=== PATIENT | female | born 1975 | race Caucasian/White ===

== ENCOUNTER → 2016-04-06 | Outpatient (CLI) | payer OTHER ==
[~2016-04-06] VITALS: Ht 139.7 cm; Wt 54.4 kg
[~2016-04-06] MED LIST: /ADVA50050; ADV100INH INH; ALEV220T26 PO; AMIT10TA2; AMLO5TAB2 PO; FLECTOR1.3; FLON0.05; GABA-283 PO; NS 1,000 ML IV SCH; OMEP40CA2 PO; PROA1AER INH; PROPOFOL 200 MG/20 ML VIAL As Ordered ONE; SOMA250T; TIZA4CAP3 PO; TRAM100T; VICO5TAB
--- NOTE | 2016-04-06 13:45 | ROOR ---
Patient Name: Estrella Key Procedure Date: 04/06/2016 1:28 PM Date of : 1975 Age: 40 Room: [facility] Gender: Female Note Status: Finalized Procedure: Upper GI endoscopy + Biopsies Indications: Dysphagia, Heartburn Providers: Pedro Sewell MD Referring MD: APPLE Todd Requesting Provider: Medicines: Monitored Anesthesia Care Complications: No immediate complications. Procedure: Pre-Anesthesia Assessment: - The heart rate, respiratory rate, oxygen saturations, blood pressure, adequacy of pulmonary ventilation, and response to care were monitored throughout the procedure. The Endoscope was introduced through the mouth, and advanced to the second part of duodenum. The upper GI endoscopy was accomplished without difficulty. The patient tolerated the procedure well. Findings: The Z-line was irregular and was found 40 cm from the incisors. Multiple biopsies were obtained with cold forceps for evaluation to rule out Lopez's Esophagus randomly at the gastroesophageal junction. A medium-sized hiatal hernia was present. No other significant abnormalities were identified in a careful examination of the stomach. The exam of the duodenum was otherwise normal. Impression: - Z-line irregular, 40 cm from the incisors. - Medium-sized hiatal hernia. - Multiple biopsies were obtained at the gastroesophageal junction. - The examination was otherwise normal. Recommendation: - Patient has a contact number available for emergencies. The signs and symptoms of potential delayed complications were discussed with the patient. Return to normal activities tomorrow. Written discharge instructions were provided to the patient. - High fiber diet. - Discharge patient to home. - Continue present medications. - Await pathology results. - Telephone GI clinic for pathology results in 1 week. - Return to referring physician. - The findings and recommendations were discussed with the patient's family. Pedro Sewell MD Pedro Sewell MD 04/06/2016 1:44:36 PM This report has been signed electronically. Number of Addenda: 0 Note Initiated On: 04/06/2016 1:28 PM Estimated Blood Loss: Estimated blood loss: none.
[2016-04-06 14:15] VITALS: BP 139/86
== END ==
LOC: M OPP 12:01
PROVIDERS: ATTEND Internal Medicine Gastroenterology
DX: R13.10 Dysphagia, unspecified (principal); R12 Heartburn; K22.8 Other specified diseases of esophagus; K44.9 Diaphragmatic hernia without obstruction or gangrene; R63.0 Anorexia; R63.4 Abnormal weight loss; J45.909 Unspecified asthma, uncomplicated; K21.9 Gastro-esophageal reflux disease without esophagitis; I10 Essential (primary) hypertension; Z79.899 Other long term (current) drug therapy

== ENCOUNTER 2016-09-15 23:39 | Emergency (ER) | payer OTHER ==
[~2016-09-15] VITALS: Ht 139.7 cm; Wt 51.4 kg
[2016-09-15 23:39] VITALS: BP 159/98
[~2016-09-15 23:39] MED LIST changes: -NS 1,000 ML IV SCH; -PROA1AER INH; +PROAAER10 INH; -PROPOFOL 200 MG/20 ML VIAL As Ordered ONE
[2016-09-15] MEDS ORDERED: ZANA4TAB (23:50)
[2016-09-15] MEDS ORDERED: OMEP20CA3 (23:50)
[2016-09-16] MEDS ORDERED: NORCO, ANEXSIA 5/325MG TABLET (HYDROcodone/ACETAMINOPHEN) PO ONE (01:25)
[2016-09-16] MEDS ORDERED: NAPROXEN 250 MG TAB PO ONE (01:25)
--- NOTE | 2016-09-16 05:00 | ED PDOC ---
Post-Departure Follow-Up This record was completely or completely on paper due to electronic EMR downtime. Please see the scanned paper chart attached. Penelope Orta MD Sep 16, 2016 05:00
== END 2016-09-16 05:06 | disposition home or self-care (01) ==
LOC: M ED 23:39
DX: M54.42 Lumbago with sciatica, left side (principal); Z79.899 Other long term (current) drug therapy

== ENCOUNTER → 2017-01-15 | Outpatient (REF) | payer OTHER ==
[~2017-01-15] MED LIST changes: +OMEP20CA3; +ZANA4TAB
[2017-01-15 19:54] LABS: BASO # 0.1 10^3/uL (0.0-0.2); BASO % 2.4 % (0.0-1.0); EOS # 0.3 10^3/uL (0.0-0.50); EOS % 5.9 % (0.0-3.0); IMMATURE GRANULOCYTE % 0.2 % (0-0); LYMPH % 35.8 % (24.0-44.0); MEAN CORPUSCULAR HEMOGLOBIN 19.7 pg (27.0-33.0); MEAN CORPUSCULAR HGB CONC 27.7 g/dl (32.0-36.5); MEAN CORPUSCULAR VOLUME 70.9 fl (80.0-96.0); MONO # 0.6 10^3/uL (0.0-0.8); MONO % 10.1 % (0.0-5.0); NEUTROPHILS # 2.5 10^3/uL (1.8-7.7); NEUTROPHILS % 45.6 % (36.0-66.0); PLATELET COUNT, AUTOMATED 577 10^3/uL (150-450); RED CELL DISTRIBUTION WIDTH 18.6 % (11.5-14.5); WHITE BLOOD COUNT 5.5 10^3/uL (4.0-10.0)
[2017-01-15 20:13] LABS: ALBUMIN 3.8 GM/DL (3.2-5.2); ALBUMIN/GLOBULIN RATIO 1.06 (1.00-1.93); ALKALINE PHOSPHATASE 73 U/L (45-117); ALT/SGPT 23 U/L (12-78); ANION GAP 6 MEQ/L (8-16); AST/SGOT 25 U/L (7-37); BILIRUBIN,TOTAL 0.4 MG/DL (0.2-1.0); BLOOD UREA NITROGEN 12 MG/DL (7-18); CALCIUM LEVEL 8.9 MG/DL (8.5-10.1); CARBON DIOXIDE LEVEL 29 MEQ/L (21-32); CHLORIDE LEVEL 104 MEQ/L (98-107); CREATININE FOR GFR 0.66 MG/DL (0.55-1.02); GLOMERULAR FILTRATION RATE > 60.0 (>58); GLUCOSE, FASTING 83 MG/DL (70-105); POTASSIUM SERUM 4.2 MEQ/L (3.5-5.1); SODIUM LEVEL 139 MEQ/L (136-145); TOTAL PROTEIN 7.4 GM/DL (6.4-8.2)
[2017-01-15 20:30] LABS: ERYTHROCYTE SEDIMENTATION RATE 39 mm/hr (0-20)
== END ==
LOC: M SFHCADAM 11:47
PROVIDERS: ATTEND Family Medicine
DX: M25.50 Pain in unspecified joint (principal); I10 Essential (primary) hypertension

== ENCOUNTER → 2017-01-15 | Outpatient (CLI) | payer OTHER ==
--- NOTE | 2017-01-15 12:55 | REP ---
REASON FOR EXAM: Arthritis. COMPARISON EXAM: None. FINDINGS: The joint spaces are symmetric and relatively well maintained. There is no evidence of acute fracture or destructive osseous lesion. IMPRESSION: Negative hand. Unreviewed
== END ==
LOC: M ADAMS 11:47
PROVIDERS: ATTEND Family Medicine
DX: M25.50 Pain in unspecified joint (principal)

== ENCOUNTER → 2017-01-28 | Outpatient (CLI) | payer OTHER ==
[~2017-01-28] MED LIST changes: +EXCETAB80 PO; +FERR325T3 PO; -OMEP20CA3; +OMEP20CA3 PO; -ZANA4TAB; +ZANA4TAB PO
[2017-01-28 15:16] LABS: BASO # 0.1 10^3/uL (0.0-0.2); BASO % 1.5 % (0.0-1.0); EOS # 0.4 10^3/uL (0.0-0.50); EOS % 4.8 % (0.0-3.0); IMMATURE GRANULOCYTE % 0.3 % (0-0); LYMPH # 2.2 10^3/uL (1.5-4.5); LYMPH % 28.1 % (24.0-44.0); MEAN CORPUSCULAR HEMOGLOBIN 19.5 pg (27.0-33.0); MEAN CORPUSCULAR HGB CONC 28.3 g/dl (32.0-36.5); MONO # 0.5 10^3/uL (0.0-0.8); MONO % 6.6 % (0.0-5.0); NEUTROPHILS # 4.6 10^3/uL (1.8-7.7); NEUTROPHILS % 58.7 % (36.0-66.0); PLATELET COUNT, AUTOMATED 409 10^3/uL (150-450); RED CELL DISTRIBUTION WIDTH 18.5 % (11.5-14.5); WHITE BLOOD COUNT 7.9 10^3/uL (4.0-10.0)
[2017-01-28 15:45] LABS: PERCENT SATURATION 2.5 % (13.2-45.0)
== END ==
LOC: M LAB 14:36
PROVIDERS: ATTEND Family Medicine
DX: D64.9 Anemia, unspecified (principal)
CPT/HCPCS: 36415; 84466; 85025; G0463

== ENCOUNTER 2017-02-12 20:14 | Observation (INO) | payer OTHER ==
[~2017-02-12] VITALS: Ht 165.1 cm; Wt 50.9 kg
[~2017-02-12 20:14] MED LIST changes: -EXCETAB80 PO; -FERR325T3 PO
[2017-02-12] MEDS ORDERED: EXCETAB80 PO (20:23)
[2017-02-12] MEDS ORDERED: AMLO5TAB2 PO (20:23)
[2017-02-12 20:56] LABS: BASO # 0.1 10^3/uL (0.0-0.2); BASO % 1.3 % (0.0-1.0); EOS # 0.2 10^3/uL (0.0-0.50); EOS % 3.6 % (0.0-3.0); IMMATURE GRANULOCYTE % 0.2 % (0-0); LYMPH # 2.8 10^3/uL (1.5-4.5); LYMPH % 45.1 % (24.0-44.0); MEAN CORPUSCULAR HEMOGLOBIN 19.6 pg (27.0-33.0); MEAN CORPUSCULAR HGB CONC 28.6 g/dl (32.0-36.5); MEAN CORPUSCULAR VOLUME 68.6 fl (80.0-96.0); MONO # 0.3 10^3/uL (0.0-0.8); MONO % 5.4 % (0.0-5.0); NEUTROPHILS # 2.7 10^3/uL (1.8-7.7); NEUTROPHILS % 44.4 % (36.0-66.0); PLATELET COUNT, AUTOMATED 607 10^3/uL (150-450); RED CELL DISTRIBUTION WIDTH 18.7 % (11.5-14.5); WHITE BLOOD COUNT 6.1 10^3/uL (4.0-10.0)
[2017-02-12 21:16] LABS: ANION GAP 7 MEQ/L (8-16); BLOOD UREA NITROGEN 11 MG/DL (7-18); CARBON DIOXIDE LEVEL 27 MEQ/L (21-32); CHLORIDE LEVEL 106 MEQ/L (98-107); CREATININE FOR GFR 0.68 MG/DL (0.55-1.02); GLOMERULAR FILTRATION RATE > 60.0 (>58); GLUCOSE, FASTING 84 MG/DL (70-105); POTASSIUM SERUM 3.6 MEQ/L (3.5-5.1); SODIUM LEVEL 140 MEQ/L (136-145)
[2017-02-12 21:30] LABS: INR 0.91
[2017-02-12] MEDS ORDERED: tiZANidine 4 MG TAB PO PRN (22:15)
[2017-02-12] MEDS ORDERED: EXCEDRIN MIGRAINE TABLET PO PRN (22:15)
[2017-02-13 00:53] VITALS: BP 133/83
[2017-02-13 04:00] VITALS: BP_SYST 118; BP_SYST 134; BP_DIAS 75; BP_DIAS 87
[2017-02-13 06:00] LABS: MEAN CORPUSCULAR HEMOGLOBIN 21.4 pg (27.0-33.0); MEAN CORPUSCULAR HGB CONC 30.1 g/dl (32.0-36.5); MEAN CORPUSCULAR VOLUME 71.3 fl (80.0-96.0); RED CELL DISTRIBUTION WIDTH 19.9 % (11.5-14.5); WHITE BLOOD COUNT 6.3 10^3/uL (4.0-10.0)
[2017-02-13 06:12] LABS: PLATELET COUNT, AUTOMATED 487 10^3/uL (150-450)
[2017-02-13 08:00] VITALS: BP 127/73
--- NOTE | 2017-02-13 08:53 | HPE ---
DATE OF ADMISSION: 02/12/2017 PRIMARY CARE PROVIDER AND ATTENDING PHYSICIAN: Dr. Willett CHIEF COMPLAINT: Worsening anemia and general weakness. HISTORY OF PRESENT ILLNESS: The patient is a 41-year-old white female who presented to the hospital for evaluation of worsening anemia and weakness. History is provided by herself. She states one month ago she saw her primary care provider and underwent routine blood tests and found to have severe iron deficiency anemia. She states that she had some dark stool, but her primary care provider checked her stool, which was negative for bleeding. Since then, she started to take oral iron pills. She stated that she has heavy period and she is going to see the OPTICAL INSTRUMENT ASSEMBLER physician. Today, she went back to see her primary care provider and repeat blood test found her hemoglobin and hematocrit down to 7.0/24. She was requested to come to the hospital for blood transfusion. She stated that she felt weak, particularly if she moved around. Otherwise, she did not have any other symptoms. REVIEW OF SYSTEMS: Denies fever. No chills. No headache. No blurred vision. No syncope episodes. No chest pain. No coughing. No abdominal pain. No diarrhea. No hematemesis. No tarry stools. No dysuria. No tingling, numbness, weakness in the arms, lower extremities. All other systems reviewed but negative. PAST MEDICAL HISTORY: 1. Iron deficiency anemia. 2. History of asthma. 3. Hypertension. PAST SURGICAL HISTORY: 1. section. 2. Appendectomy. 3. Tonsillectomy. ALLERGIES: No known drug allergies. SOCIAL HISTORY: Few cigarettes a day. Denies alcohol abuse. Denies illicit drug abuse. 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 She is FULL CODE: FAMILY HISTORY: Father has a history of high blood pressure. MEDICATIONS: Reviewed. PHYSICAL EXAMINATION: VITAL SIGNS: Temperature 98.5, heart rate 75, respiratory rate 18, blood pressure 159/98, oxygen saturation is 100% on room air. GENERAL: She is awake, alert, oriented times three. She is in no acute distress. HEENT: Atraumatic. Pupils are equal, round and reactive to light. No jaundice. Bilateral conjunctivae look pale. Extraocular muscles are intact. Ears, nose, throat normal. Mucosa moist, not dry. NECK: No jugular venous distention (JVD). LUNGS: Clear. No wheezing. No crackles. HEART: S1, S2. Regular. No murmur. ABDOMEN: Soft. Bowel sounds positive. Nontender. LOWER EXTREMITIES: No edema in bilateral lower extremities. NEUROLOGIC: Nonfocal. SKIN: No rash. PSYCHIATRIC: No acute psychosis. DIAGNOSTIC AND LABORATORIES: Include the following: CBC and differential showed a WBC of 6.1, hemoglobin and hematocrit 7.0/24.5, platelets 607. Sodium 140, potassium 3.6, chloride 106, bicarbonate 27, BUN 11, creatinine 0.6, glucose 80. IMPRESSION: 1. Symptomatic severe iron deficiency anemia. 2. Hypertension. 3. Asthma. PLAN: She will be admitted for observation. We will type and cross and transfuse with 2 units of packed red blood cell. We will recheck CBC in the morning. 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
[2017-02-13] MEDS ORDERED: amLODIPine 5 MG TAB PO SCH (09:00)
[2017-02-13] MEDS ORDERED: OMEPRAZOLE 20 MG CAP PO SCH (09:00)
[2017-02-13 09:04] VITALS: BP 127/73
[2017-02-13] MEDS ORDERED: FERR325T3 PO (12:38)
--- NOTE | 2017-02-14 18:28 | DSES ---
DATE OF ADMISSION: 02/12/2017 DATE OF DISCHARGE: 02/13/2017 DIAGNOSES: 1. Iron-deficiency anemia. 2. History of asthma. 3. Hypertension. 4. History of gastric ulcer. 5. Heavy menstrual bleeding. BRIEF HISTORY AND PHYSICAL: This is a 41-year-old woman who add been having fatigue at home, had known history of gastric ulcer but also had heavy periods, had labs that showed hemoglobin of 6.9 as an outpatient and microcytic indices. She was advised to come to the hospital and be admitted for transfusion. Initial examination showed blood pressure 159/98, pulse 75, respirations 18, temperature 98.5. Lungs were clear. Heart had regular rhythm without any murmur, click or gallop. Abdomen was soft and nontender without any masses or organomegaly. Bowel sounds were active. Hospital lab data showed hemoglobin 7.0, platelet 607,000, WBC 6100, potassium 3.6, BUN 11, creatinine 0.6. Hemoglobin after transfusion was 9.2. Serum iron was low at 14, TIBC was 563. Transferrin saturation was low. PT/INR were normal. COURSE IN THE FACILITY: The patient was brought into the hospital for transfusion. She was given two units of packed red blood cells. This brought her hemoglobin up to 9.2. She felt a lot better. She was seen prior to discharge at which time her temperature is 98.7, blood pressure 127/73, pulse 76, respirations 18, O2 saturation 97% on room air. She is not in any distress. She had rare wheeze in her chest. Heart had a regular rhythm without any murmur, click or gallop. Abdomen was soft and nontender. She was advised to continue her: - amlodipine 5 mg daily - omeprazole 20 mg twice a day - Excedrin migraine as needed - Zanaflex 4 mg daily as needed Also her asthma inhalers as directed. She indicated that she was already taking iron at home but was started only recently and was instructed by her office provider to take three tablets every other day. I indicated that one tablet daily is how I wanted her to take it. In two days she should call the office and arrange a followup appointment, I recommend towards the end of this week before [place] for followup appointment also to find out about her consultations with gynecology (HUSKER OPERATOR) and gastroenterology (GI) and also perhaps have another complete blood count (CBC) done. MIMI
== END 2017-02-13 13:25 | disposition home or self-care (01) ==
LOC: M ED 20:14 → M ED INP 22:07 → M PED 23:30
PROVIDERS: ADMIT Hospitalist; ATTEND Family Medicine
DX: D50.9 Iron deficiency anemia, unspecified (principal); J45.909 Unspecified asthma, uncomplicated; I10 Essential (primary) hypertension; K25.9 Gastric ulcer, unspecified as acute or chronic, without hemorrhage or perforation; N92.0 Excessive and frequent menstruation with regular cycle; R53.83 Other fatigue; R53.1 Weakness; K21.9 Gastro-esophageal reflux disease without esophagitis; M54.9 Dorsalgia, unspecified; Z79.899 Other long term (current) drug therapy; Z79.51 Long term (current) use of inhaled steroids; F17.210 Nicotine dependence, cigarettes, uncomplicated
CPT/HCPCS: 36415; 36430; 80048; 85025; 85027; 85610; 85730; 86850; 86900; 86901; 86920; 99285; P9016

== ENCOUNTER → 2017-02-12 | Outpatient (CLI) | payer OTHER | LOC: M LAB 14:36 | PROVIDERS: ATTEND Family Medicine | DX: D50.9 Iron deficiency anemia, unspecified (principal) ==

== ENCOUNTER → 2017-04-08 | Outpatient (REF) | payer OTHER ==
[2017-04-08 12:58] LABS: HEMATOCRIT 33.1 % (36.0-47.0); HEMOGLOBIN 10.1 g/dl (12.0-16.0); MEAN CORPUSCULAR HEMOGLOBIN 23.5 pg (27.0-33.0); MEAN CORPUSCULAR HGB CONC 30.5 g/dl (32.0-36.5); PLATELET COUNT, AUTOMATED 432 10^3/uL (150-450); RED CELL DISTRIBUTION WIDTH 23.1 % (11.5-14.5); WHITE BLOOD COUNT 6.5 10^3/uL (4.0-10.0)
== END ==
LOC: M SFHCADAM 09:59
DX: D50.9 Iron deficiency anemia, unspecified (principal)

== ENCOUNTER 2017-04-21 11:18 | Day surgery (SDC) | payer OTHER ==
[~2017-04-21 11:18] MED LIST changes: -/ADVA50050; -ADV100INH INH; -ALEV220T26 PO; -AMIT10TA2; -AMLO5TAB2 PO; -FLECTOR1.3; -FLON0.05; -GABA-283 PO; -OMEP20CA3 PO; -OMEP40CA2 PO; -PROAAER10 INH; +PROPOFOL 200 MG/20 ML VIAL As Ordered; -SOMA250T; -TIZA4CAP3 PO; -TRAM100T; -VICO5TAB; -ZANA4TAB PO
[2017-04-21] MEDS: NS 1,000 ML IV (12:00)
[2017-04-21] MEDS ORDERED: PROPOFOL 200 MG/20 ML VIAL As Ordered ×2 (12:39→12:42)
[2017-04-21] MEDS ORDERED: LIDOCAINE 2% INJ 100 MG/5 ML SDV (FOR ANES.) As Ordered ×2 (12:39)
== END 2017-04-21 13:40 | disposition home or self-care (01) ==
LOC: M OPP 11:18
DX: D50.9 Iron deficiency anemia, unspecified (principal); K64.0 First degree hemorrhoids; K57.30 Diverticulosis of large intestine without perforation or abscess without bleeding; K22.8 Other specified diseases of esophagus; K44.9 Diaphragmatic hernia without obstruction or gangrene; I10 Essential (primary) hypertension; E78.5 Hyperlipidemia, unspecified; R13.10 Dysphagia, unspecified; K59.00 Constipation, unspecified; Z87.19 Personal history of other diseases of the digestive system; M54.9 Dorsalgia, unspecified; G43.909 Migraine, unspecified, not intractable, without status migrainosus; J45.909 Unspecified asthma, uncomplicated; Z92.21 Personal history of antineoplastic chemotherapy; Z92.3 Personal history of irradiation; Z79.899 Other long term (current) drug therapy
CPT/HCPCS: 45378

== ENCOUNTER → 2017-05-03 | Outpatient (REF) | payer OTHER | LOC: M LAB REF 13:50 | DX: N93.9 Abnormal uterine and vaginal bleeding, unspecified (principal) ==

== ENCOUNTER → 2017-05-31 | Outpatient (CLI) | payer OTHER | LOC: M RAD 14:32 | DX: N93.9 Abnormal uterine and vaginal bleeding, unspecified (principal) | CPT/HCPCS: 76856 ==

== ENCOUNTER → 2017-06-03 | Outpatient (REF) | payer OTHER ==
[2017-06-08 14:13] LABS: HPV HYBRID CAPTURE II Negative (Negative)
== END ==
LOC: M LAB REF 13:36
DX: Z12.4 Encounter for screening for malignant neoplasm of cervix (principal)

== ENCOUNTER → 2017-07-01 | Outpatient (REF) | payer OTHER ==
[2017-07-01 14:25] LABS: APPEARANCE, URINE CLEAR (CLEAR); BACTERIA, URINE AUTO NEGATIVE (NEGATIVE); BILIRUBIN, URINE AUTO NEGATIVE (NEGATIVE); BLOOD, URINE BLOOD NEGATIVE (NEGATIVE); COLOR, URINE STRAW (YELLOW); GLUCOSE, URINE (UA) AUTO NEGATIVE (NEGATIVE); KETONE, URINE AUTO NEGATIVE (NEGATIVE); LEUKOCYTE ESTERASE, URINE AUTO NEGATIVE (NEGATIVE); NITRITE, URINE AUTO NEGATIVE (NEGATIVE); PROTEIN, URINE AUTO NEGATIVE (NEGATIVE); RBC, URINE AUTO 0 /HPF (0-3); SPECIFIC GRAVITY URINE AUTO 1.009 (1.002-1.035); SQUAMOUS EPITHELIAL CELL UR AU 0 /HPF (0-6); UROBILINOGEN, URINE AUTO 0.2 mg/dL (0.0-2.0); WBC, URINE AUTO 0 /HPF (0-3)
== END ==
LOC: M LAB REF 13:26
DX: R30.0 Dysuria (principal)

== ENCOUNTER → 2017-11-24 | Outpatient (CLI) | payer OTHER | LOC: M RAD 10:50 | DX: R59.1 Generalized enlarged lymph nodes (principal) | CPT/HCPCS: 76536 ==

== ENCOUNTER 2018-07-31 22:44 | Emergency (ER) | payer OTHER ==
[~2018-07-31] VITALS: Ht 139.7 cm; Wt 54.5 kg
[~2018-07-31 22:44] MED LIST changes: +ADV100INH INH; +ADVA1AER2; +ALEV220T26 PO; +AMIT10TA2; +AMLO5TAB6 PO; +COLA100C5 PO; +EXCETAB80 PO; +FERR325T3 PO; +FLECTOR1.3; +FLON0.05; +GABA-845 PO; +IBUP80TA PO; +OMEP20CA3 PO; +OMEP40CA2 PO; +OXYC1TAB23 PO; +PROAAER10 INH; -PROPOFOL 200 MG/20 ML VIAL As Ordered; +SOMA250T; +TIZA4CAP PO; +TRAM100T; +VICO5TAB; +ZANA4TAB PO
[2018-07-31] MEDS ORDERED: LORazepam 2 MG/ML VIAL (J2060) IV STA (23:13)
[2018-07-31] MEDS ORDERED: NS 1,000 ML IV ONE (23:15)
[2018-07-31 23:28] LABS: HEMATOCRIT 31.9 % (36.0-47.0); HEMOGLOBIN 9.7 g/dl (12.0-15.5); MEAN CORPUSCULAR HEMOGLOBIN 23.9 pg (27.0-33.0); MEAN CORPUSCULAR HGB CONC 30.4 g/dl (32.0-36.5); MEAN CORPUSCULAR VOLUME 78.6 fl (80.0-96.0); PLATELET COUNT, AUTOMATED 415 10^3/uL (150-450); RED BLOOD COUNT 4.06 10^6/uL (4.00-5.40); WHITE BLOOD COUNT 10.2 10^3/uL (4.0-10.0)
[2018-07-31 23:34] LABS: VENOUS BASE EXCESS -3.9 (-2.0-2.0); VENOUS HCO3 18.7 MEQ/L (23.0-27.0); VENOUS O2 SATURATION 84.9 % (60.0-80.0); VENOUS PARTIAL PRESSURE CO2 26.4 mmHg (38.0-50.0); VENOUS PARTIAL PRESSURE O2 49.6 mmHg (30.0-50.0); VENOUS PH 7.467 UNITS (7.330-7.430); VENOUS TOTAL CO2 19.5 MEQ/L (24.0-28.0)
[2018-07-31 23:48] LABS: ANISOCYTOSIS 1+; ATYPICAL LYMPH 2 % (0-5); EOSINOPHILS 3 % (0-5); LYMPHOCYTES 40 % (16-52); MICROCYTOSIS 1+; MONOCYTES 5 % (0-8); NEUTROPHILS 50 % (35-75); PLATELET ESTIMATE INCREASED (NORMAL)
[2018-07-31 23:50] LABS: POIKILOCYTOSIS 1+
[2018-07-31 23:51] LABS: ACETAMINOPHEN LEVEL < 2.0 UG/ML (10.0-30.0); ALBUMIN 3.8 GM/DL (3.2-5.2); ALT/SGPT 19 U/L (12-78); BILIRUBIN,DIRECT < 0.1 MG/DL (0.0-0.2); BILIRUBIN,TOTAL 0.2 MG/DL (0.2-1.0); BLOOD UREA NITROGEN 8 MG/DL (7-18); CALCIUM LEVEL 8.3 MG/DL (8.5-10.1); CARBON DIOXIDE LEVEL 22 MEQ/L (21-32); CHLORIDE LEVEL 109 MEQ/L (98-107); CPK CREATINE PHOSPHOKINASE 211 U/L (26-192); CREATININE FOR GFR 0.74 MG/DL (0.55-1.30); ETHYL ALCOHOL (ETHANOL) 0.139 % (0.000-0.010); GLOMERULAR FILTRATION RATE > 60.0 (>58); GLUCOSE, FASTING 90 MG/DL (70-100); MB/CK RELATIVE INDEX 1.09 (< OR =4); POTASSIUM SERUM 3.8 MEQ/L (3.5-5.1); SALICYLATE LEVEL < 1.7 MG/DL (5.0-30.0); SODIUM LEVEL 143 MEQ/L (136-145); TOTAL PROTEIN 7.4 GM/DL (6.4-8.2); TROPONIN I < 0.02 NG/ML (< 0.10)
[2018-08-01] MEDS ORDERED: BENZTROPINE MESYLATE 2MG/2ML VIAL IM ONE (00:15)
[2018-08-01 00:56] LABS: AMPHETAMINES LEVEL URINE NEGATIVE (NEGATIVE); BARBITURATES URINE NEGATIVE (NEGATIVE); BENZODIAZEPINES URINE NEGATIVE (NEGATIVE); CANNABINOIDS URINE NEGATIVE (NEGATIVE); COCAINE METABOLITE URINE NEGATIVE (NEGATIVE); METHADONE URINE NEGATIVE (NEGATIVE); OPIATES URINE NEGATIVE (NEGATIVE); PHENCYCLIDINE URINE NEGATIVE (NEGATIVE)
--- NOTE | 2018-08-01 01:25 | REPVR ---
EXAM: CT Head Without Contrast EXAM DATE/TIME: 08/01/2018 12:52 AM CLINICAL HISTORY: 43 years old, female; Signs and symptoms; Altered mental status/memory loss; Confusion or disorientation; Additional info: AMS TECHNIQUE: Imaging protocol: Axial computed tomography images of the head without contrast. Radiation optimization: All CT scans at this facility use at least one of these dose optimization techniques: automated exposure control; mA and/or kV adjustment per patient size (includes targeted exams where dose is matched to clinical indication); or iterative reconstruction. COMPARISON: Thyroid, ST head+neck US 11/24/2017 11:03 AM FINDINGS: Brain: No CT evidence of acute intracranial hemorrhage or acute territorial infarction. No significant mass effect or midline shift. Basal cisterns patent. Ventricles: Normal in size and configuration. Bones/joints: No acute osseous abnormality. Sinuses: Grossly unremarkable. Mastoid air cells: Partial opacification of the mastoid air cells. Soft tissues: Grossly unremarkable. IMPRESSION: 1. No CT evidence of acute intracranial pathology. 2. Additional findings, as above. Electronically signed by: Santo Carrington On 08/01/2018 01:24:21 AM
[2018-08-01 02:34] VITALS: O2SAT 97
[2018-08-01 03:57] VITALS: BP 122/71
[2018-08-01] MEDS ORDERED: EXCEDTAB PO (12:40)
[2018-08-01] MEDS ORDERED: TIZA4TAB4 PO (12:40)
[2018-08-01] MEDS ORDERED: ADVI200T17 PO (12:42)
[2018-08-01] MEDS ORDERED: KEPP1TAB PO (14:40)
--- NOTE | 2018-08-01 15:10 | ECGEPIP ---
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
== END 2018-08-01 04:06 | disposition home or self-care (01) ==
LOC: M ED 22:44
DX: F10.129 Alcohol abuse with intoxication, unspecified (principal); Z79.51 Long term (current) use of inhaled steroids; Z79.899 Other long term (current) drug therapy

== ENCOUNTER 2018-08-01 10:25 | Emergency (ER) | payer OTHER ==
[~2018-08-01] VITALS: Ht 139.7 cm; Wt 55.4 kg
[2018-08-01] MEDS ORDERED: LORazepam 2 MG/ML VIAL (J2060) IV STA (11:25)
[2018-08-01] MEDS ORDERED: NS 1,000 ML IV ONE (11:30)
--- NOTE | 2018-08-01 11:52 | REP ---
CT Head without contrast HISTORY: Altered mental status COMPARISON: 08/01/2018 There is no intraparenchymal hemorrhage, acute infarct, mass or midline shift. The ventricular system is normal in appearance. A cavum septi pellucidi is present. There is no extra cerebral collection. There is no fracture. Mucosal thickening is present in the mastoid air cells. The visualized sinuses are clear. IMPRESSION: There is no intracranial lesion. Electronically Signed by Israel Putnam MD 08/01/2018 11:45 A
[2018-08-01 11:59] LABS: BASO # 0.1 10^3/uL (0.0-0.2); EOS # 0.1 10^3/uL (0.0-0.50); EOS % 1.8 % (0.0-3.0); HEMATOCRIT 31.6 % (36.0-47.0); HEMOGLOBIN 9.7 g/dl (12.0-15.5); LYMPH # 1.7 10^3/uL (1.5-4.5); LYMPH % 25.7 % (24.0-44.0); MEAN CORPUSCULAR HEMOGLOBIN 24.5 pg (27.0-33.0); MEAN CORPUSCULAR HGB CONC 30.7 g/dl (32.0-36.5); MEAN CORPUSCULAR VOLUME 79.8 fl (80.0-96.0); MONO # 0.5 10^3/uL (0.0-0.8); MONO % 7.2 % (0.0-5.0); NEUTROPHILS # 4.3 10^3/uL (1.8-7.7); NEUTROPHILS % 63.9 % (36.0-66.0); PLATELET COUNT, AUTOMATED 345 10^3/uL (150-450); RED BLOOD COUNT 3.96 10^6/uL (4.00-5.40); WHITE BLOOD COUNT 6.8 10^3/uL (4.0-10.0)
--- NOTE | 2018-08-01 12:24 | REP ---
CHEST: Single view. There is no evidence of acute infiltrate. No pleural effusion is seen. The heart is normal in size. The mediastinal silhouette is unremarkable. The visualized osseous structures are intact. IMPRESSION: No acute pulmonary disease. Electronically Signed by Grayson Harris MD 08/02/2018 11:56 A
[2018-08-01 12:30] LABS: AMPHETAMINES LEVEL URINE NEGATIVE (NEGATIVE); BARBITURATES URINE NEGATIVE (NEGATIVE); BENZODIAZEPINES URINE NEGATIVE (NEGATIVE); CANNABINOIDS URINE NEGATIVE (NEGATIVE); COCAINE METABOLITE URINE NEGATIVE (NEGATIVE); METHADONE URINE NEGATIVE (NEGATIVE); OPIATES URINE NEGATIVE (NEGATIVE); PHENCYCLIDINE URINE NEGATIVE (NEGATIVE)
[2018-08-01 12:35] LABS: ACETAMINOPHEN LEVEL < 2.0 UG/ML (10.0-30.0); ALBUMIN 3.9 GM/DL (3.2-5.2); ALT/SGPT 18 U/L (12-78); BILIRUBIN,DIRECT 0.1 MG/DL (0.0-0.2); BILIRUBIN,TOTAL 0.6 MG/DL (0.2-1.0); BLOOD UREA NITROGEN 6 MG/DL (7-18); CARBON DIOXIDE LEVEL 26 MEQ/L (21-32); CHLORIDE LEVEL 109 MEQ/L (98-107); CPK CREATINE PHOSPHOKINASE 284 U/L (26-192); CREATININE FOR GFR 0.61 MG/DL (0.55-1.30); ETHYL ALCOHOL (ETHANOL) < 0.003 % (0.000-0.010); GLOMERULAR FILTRATION RATE > 60.0 (>58); GLUCOSE, FASTING 85 MG/DL (70-100); MB/CK RELATIVE INDEX 0.63 (< OR =4); POTASSIUM SERUM 3.8 MEQ/L (3.5-5.1); SALICYLATE LEVEL < 1.7 MG/DL (5.0-30.0); SODIUM LEVEL 141 MEQ/L (136-145); TOTAL PROTEIN 7.2 GM/DL (6.4-8.2); TROPONIN I < 0.02 NG/ML (< 0.10)
[2018-08-01] MEDS ORDERED: TIZA4TAB4 PO (12:40)
[2018-08-01] MEDS ORDERED: EXCEDTAB PO (12:40)
[2018-08-01] MEDS ORDERED: ADVI200T17 PO (12:42)
[2018-08-01] MEDS ORDERED: levETIRAcetam INJection 1,000 MG in D5W 100 ML IV ONE (13:15)
[2018-08-01] MEDS ORDERED: levETIRAcetam INJection 500 MG in D5W 100 ML IV SCH (13:30)
[2018-08-01] MEDS: levETIRAcetam INJection 500 MG in D5W MINI-BAG PLUS 100 ML IV SCH ×2 (13:50→14:32)
[2018-08-01] MEDS ORDERED: KEPP1TAB PO (14:40)
[2018-08-01 14:45] VITALS: BP 135/92
--- NOTE | 2018-08-01 15:18 | ECGEPIP ---
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
== END 2018-08-01 14:59 | disposition home or self-care (01) ==
LOC: M ED 10:25
DX: G25.3 Myoclonus (principal); F10.129 Alcohol abuse with intoxication, unspecified; I10 Essential (primary) hypertension; F17.210 Nicotine dependence, cigarettes, uncomplicated; Z79.51 Long term (current) use of inhaled steroids; Z79.899 Other long term (current) drug therapy
CPT/HCPCS: 36415; 70450; 71045; 80048; 80076; 80307; 81001; 82140; 82550; 82553; 82803; 83605; 84443; 84484; 85025; 93005; 93041; 96361; 96365; 96372; 96374; 96375; 99285; G0480; J1953; J2060

== ENCOUNTER → 2018-08-23 | Outpatient (CLI) | payer OTHER ==
[~2018-08-23] MED LIST changes: +ADVI200T17 PO; +EXCEDTAB PO; +KEPP1TAB PO; +TIZA4TAB4 PO
[2018-08-23 13:23] LABS: RHEUMATOID FACTOR QUANT < 10.0 IU/ML (<15.0)
[2018-08-23 13:36] LABS: FOLATE 18.2 NG/ML; VITAMIN B12 LEVEL 337 PG/ML
[2018-08-30 00:06] LABS: ANTI DOUBLE STRAND-DNA AB <1 IU/mL (0-9); ANTINUCLEAR ANTIBODIES DIRECT Positive (Negative); PORPHOBILINOGEN RANDOM URINE 0.2 mg/L (0.0-2.0); SJOGREN'S ANTI SS-A <0.2 AI (0.0-0.9); SJOGREN'S ANTI SS-B <0.2 AI (0.0-0.9); SMITH ANTIBODIES <0.2 AI (0.0-0.9); VITAMIN B1 LEVEL WHOLE BLOOD 101.2 nmol/L (66.5-200.0); VITAMIN E(ALPHA TOCOPHEROL) 12.9 mg/L (7.0-25.1); VITAMIN E(GAMMA TOCOPHEROL) 2.2 mg/L (0.5-5.5)
== END ==
LOC: M ADAMS 08:36
PROVIDERS: ATTEND Psychiatry & Neurology Neurology
DX: R41.82 Altered mental status, unspecified (principal)

== ENCOUNTER → 2019-08-03 | Outpatient (CLI) | payer OTHER ==
[~2019-08-03] MED LIST changes: +OMEP1CAP73 PO; -OMEP20CA3 PO; -OMEP40CA2 PO; +OMEP40CA97 PO
--- NOTE | 2019-08-04 01:53 | REP ---
Clinical: Right hand pain. Technique: AP, lateral, bilateral oblique views of the right hand. Findings: Generalized age-related changes are appreciated. Very minimal joint space narrowing at the interphalangeal joints noted. No further significant osteoarthritic degenerative changes identified. No acute fracture dislocation. No subcutaneous emphysema or foreign body. Impression: Generalized age-related changes along with minimal joint space narrowing at the interphalangeal joints. Electronically Signed by Santy Mays MD 08/04/2019 01:44 A
== END ==
LOC: M ADAMS 09:55
PROVIDERS: ATTEND Physician Assistant
DX: M79.641 Pain in right hand (principal)

== ENCOUNTER 2019-09-28 22:50 | Emergency (ER) | payer OTHER ==
[~2019-09-28 22:50] MED LIST changes: +ACETAMINOPHEN 325 MG TAB As Ordered ONE; +ACETAMINOPHEN 325 MG TAB ONE; +AMLO1TAB24 PO; -AMLO5TAB6 PO
[2019-11-05 14:19] LABS: BASO % 0.3 % (0.0-1.0); EOS % 0.1 % (0.0-3.0); HEMATOCRIT 32.3 % (36.0-47.0); HEMOGLOBIN 9.7 g/dl (12.0-15.5); LYMPH # 0.8 10^3/uL (1.5-5.0); LYMPH % 9.1 % (24.0-44.0); MEAN CORPUSCULAR HEMOGLOBIN 22.2 pg (27.0-33.0); MEAN CORPUSCULAR VOLUME 73.9 fl (80.0-96.0); MONO # 0.5 10^3/uL (0.0-0.8); MONO % 5.2 % (0.0-5.0); NEUTROPHILS # 7.7 10^3/uL (1.5-8.5); NEUTROPHILS % 84.9 % (36.0-66.0); PLATELET COUNT, AUTOMATED 280 10^3/uL (150-450); RED BLOOD COUNT 4.37 10^6/uL (4.00-5.40); WHITE BLOOD COUNT 9.1 10^3/uL (4.0-10.0)
[2019-12-08 12:00] LABS: ALBUMIN 3.9 GM/DL (3.2-5.2); ALT/SGPT 17 IU/L (0-32); BILIRUBIN,DIRECT 0.2 MG/DL (0.0-0.2); BILIRUBIN,TOTAL 0.4 MG/DL (0.2-1.0); BLOOD UREA NITROGEN 8 MG/DL (7-18); CALCIUM LEVEL 8.6 MG/DL (8.5-10.1); CARBON DIOXIDE LEVEL 26 mmol/L (20-29); CHLORIDE LEVEL 103 MEQ/L (98-107); CREATININE FOR GFR 0.79 MG/DL (0.55-1.30); GLOMERULAR FILTRATION RATE > 60.0 (>58); GLUCOSE, FASTING 90 MG/DL (70-100); POTASSIUM SERUM 3.1 MEQ/L (3.5-5.1); SODIUM LEVEL 135 MEQ/L (136-145); TOTAL PROTEIN 7.7 GM/DL (6.4-8.2)
== END 2019-09-29 00:20 | disposition home or self-care (01) ==
LOC: M ED 22:50
DX: B34.9 Viral infection, unspecified (principal); R06.02 Shortness of breath; M79.10 Myalgia, unspecified site

== ENCOUNTER → 2019-12-15 | Outpatient (REF) | payer OTHER ==
[~2019-12-15] MED LIST changes: -ACETAMINOPHEN 325 MG TAB As Ordered ONE; -ACETAMINOPHEN 325 MG TAB ONE
[2019-12-15 13:09] LABS: BASO # 0.1 10^3/uL (0.0-0.2); BASO % 1.4 % (0.0-1.0); EOS # 0.5 10^3/uL (0.0-0.5); EOS % 6.6 % (0.0-3.0); HEMATOCRIT 32.1 % (36.0-47.0); LYMPH # 2.1 10^3/uL (1.5-5.0); LYMPH % 30.7 % (24.0-44.0); MEAN CORPUSCULAR HEMOGLOBIN 21.4 pg (27.0-33.0); MEAN CORPUSCULAR VOLUME 76.2 fl (80.0-96.0); MONO # 0.5 10^3/uL (0.0-0.8); MONO % 6.4 % (0.0-5.0); NEUTROPHILS # 3.8 10^3/uL (1.5-8.5); NEUTROPHILS % 54.8 % (36.0-66.0); PLATELET COUNT, AUTOMATED 554 10^3/uL (150-450); RED BLOOD COUNT 4.21 10^6/uL (4.00-5.40)
[2019-12-15 13:54] LABS: ALBUMIN 3.7 GM/DL (3.2-5.2); ALT/SGPT 22 U/L (12-78); BILIRUBIN,TOTAL 0.3 MG/DL (0.2-1.0); BLOOD UREA NITROGEN 15 MG/DL (7-18); CALCIUM LEVEL 8.7 MG/DL (8.5-10.1); CARBON DIOXIDE LEVEL 29 MEQ/L (21-32); CHLORIDE LEVEL 107 MEQ/L (98-107); CHOLESTEROL LEVEL 225 MG/DL (<200); GLOMERULAR FILTRATION RATE > 60.0 (>58); GLUCOSE, FASTING 79 MG/DL (70-100); HDL CHOLESTEROL 69 MG/DL (>40); LDL CHOLESTEROL 142 MG/DL (<100); NON-HDL-C 156 MG/DL; NT-PRO BNP 134 PG/ML (<125); POTASSIUM SERUM 4.7 MEQ/L (3.5-5.1); SODIUM LEVEL 140 MEQ/L (136-145); TOTAL PROTEIN 7.4 GM/DL (6.4-8.2); TRIGLYCERIDES LEVEL 71 MG/DL (<150)
== END ==
LOC: M SFHCADAM 08:19
PROVIDERS: ATTEND Family Medicine
DX: Z00.00 Encounter for general adult medical examination without abnormal findings (principal); R06.00 Dyspnea, unspecified

== ENCOUNTER → 2019-12-27 | Outpatient (REF) | payer OTHER ==
[2019-12-27 18:33] LABS: PERCENT SATURATION 3.1 % (13.2-45.0)
== END ==
LOC: M SFHCADAM 15:03
PROVIDERS: ATTEND Family Medicine
DX: D64.9 Anemia, unspecified (principal)
CPT/HCPCS: 83550; 85018; 90471; 90682; G0463

== ENCOUNTER → 2020-03-20 | Outpatient (CLI) | payer OTHER ==
[~2020-03-20] MED LIST changes: +PANT40TA29 PO
== END ==
LOC: M LABSMTC 11:46
PROVIDERS: ATTEND Anesthesiology
DX: Z01.818 Encounter for other preprocedural examination (principal); Z20.828 Contact with and (suspected) exposure to other viral communicable diseases

== ENCOUNTER → 2020-03-20 | Outpatient (CLI) | payer OTHER ==
--- NOTE | 2020-03-20 08:06 | REP ---
INDICATION: IRON DEFICIENCY, RUQ PAIN COMPARISON: None. TECHNIQUE: Real time B-mode ashby scale ultrasound examination using curved array transducer. FINDINGS: Liver is normal in contour, size, and echogenicity without focal hepatic lesions identified. Pancreas is incompletely evaluated due to interposed bowel gas but visualized portions are normal.. The gallbladder is normal and without gallstones, wall thickening, or pericholecystic fluid. However, patient displayed obvious pain with right upper quadrant transducer pressure. No biliary ductal dilatation is appreciated and the common bile duct measures 2.0 mm diameter. Right kidney is normal in reniform shape without hydronephrosis and measures 9.8 x 4.8 x 4.8 cm. No ascites in the visualized right upper quadrant. IMPRESSION: 1. Right upper quadrant pain with transducer pressure. 2. Otherwise essentially normal right upper quadrant ultrasound. <Electronically signed by Santy Mays > 03/20/20 [id number]
== END ==
LOC: M RAD 07:07
PROVIDERS: ATTEND Internal Medicine Gastroenterology
DX: Z01.818 Encounter for other preprocedural examination (principal); Z20.828 Contact with and (suspected) exposure to other viral communicable diseases; D80.9 Immunodeficiency with predominantly antibody defects, unspecified; R10.11 Right upper quadrant pain
CPT/HCPCS: 76705; U0003

== ENCOUNTER → 2020-04-03 | Outpatient (CLI) | payer OTHER | LOC: M LABSMTC 10:37 | PROVIDERS: ATTEND Anesthesiology | DX: Z01.812 Encounter for preprocedural laboratory examination (principal); Z20.822 Contact with and (suspected) exposure to COVID-19 ==

== ENCOUNTER 2020-04-08 09:02 | Day surgery (SDC) | payer OTHER ==
[~2020-04-08] VITALS: Ht 139.7 cm; Wt 55.2 kg
[~2020-04-08 09:02] MED LIST changes: +NS 1,000 ML IV ONE
[2020-04-08] MEDS ORDERED: LIDOCAINE 2% 100MG/5ML SDV (FOR ANES.) As Ordered ONE (09:10)
[2020-04-08] MEDS ORDERED: propofoL 200 MG/20 ML VIAL As Ordered ONE (09:10)
[2020-04-08] MEDS ORDERED: fentaNYL 100 MCG/2 ML INJECTION (J3010) As Ordered ONE (10:20)
--- NOTE | 2020-04-08 10:38 | ROOR ---
Patient Name: Estrella Key Procedure Date: 04/08/2020 10:16 AM Date of : 1975 Age: 44 Room: [facility] Gender: Female Note Status: Finalized Procedure: Upper Endoscopy + Biopsies Indications: Iron deficiency anemia Providers: Pedro Sewell MD Referring MD: Cindy LYLES DO Requesting Provider: Medicines: Monitored Anesthesia Care Complications: No immediate complications. Procedure: Pre-Anesthesia Assessment: - The heart rate, respiratory rate, oxygen saturations, blood pressure, adequacy of pulmonary ventilation, and response to care were monitored throughout the procedure. The Endoscope was introduced through the mouth, and advanced to the second part of duodenum. The upper GI endoscopy was accomplished without difficulty. The patient tolerated the procedure well. Findings: The Z-line was irregular and was found 35 cm from the incisors. Multiple biopsies were obtained with cold forceps for evaluation to rule out Lopez's Esophagus randomly at the gastroesophageal junction. A small hiatal hernia was present. No other significant abnormalities were identified in a careful examination of the stomach. Biopsies were taken with a cold forceps in the gastric antrum for Helicobacter pylori testing. The exam of the duodenum was otherwise normal. Biopsies for histology were taken with a cold forceps in the first portion of the duodenum for evaluation of celiac disease. The exam was otherwise without abnormality. Impression: - Z-line irregular, 35 cm from the incisors. - Small hiatal hernia. - The examination was otherwise normal. - Multiple biopsies were obtained at the gastroesophageal junction. - Biopsies were taken with a cold forceps for Helicobacter pylori testing. - Biopsies were taken with a cold forceps for evaluation of celiac disease. Recommendation: - Patient has a contact number available for emergencies. The signs and symptoms of potential delayed complications were discussed with the patient. Return to normal activities tomorrow. Written discharge instructions were provided to the patient. - High fiber diet. - Discharge patient to home. - Follow an antireflux regimen. - Continue present medications. - Await pathology results. - Telephone GI clinic for pathology results in 1 week. - Return to referring physician. - The findings and recommendations were discussed with the patient. Procedure Code(s): --- Professional --- 68977, Esophagogastroduodenoscopy, flexible, transoral; with biopsy, single or multiple Diagnosis Code(s): --- Professional --- K22.8, Other specified diseases of esophagus K44.9, Diaphragmatic hernia without obstruction or gangrene D50.9, Iron deficiency anemia, unspecified CPT copyright 2019 [employer]. All rights reserved. The codes documented in this report are preliminary and upon miter cutter review may be revised to meet current compliance requirements. Pedro Sewell MD Pedro Sewell MD 04/08/2020 10:37:43 AM Electronically signed by Pedro Sewell MD Number of Addenda: 0 Note Initiated On: 04/08/2020 10:16 AM Estimated Blood Loss: Estimated blood loss: none.
--- NOTE | 2020-04-08 10:53 | ROOR ---
Patient Name: Estrella Key Procedure Date: 04/08/2020 10:16 AM Date of : 1975 Age: 44 Room: [facility] Gender: Female Note Status: Finalized Procedure: Total Colonoscopy to Cecum Indications: Screening in patient at increased risk: Colorectal cancer in child before age 60 Providers: Pedro Sewell MD Referring MD: Cindy LYLES DO Requesting Provider: Medicines: Monitored Anesthesia Care Complications: No immediate complications. Procedure: Pre-Anesthesia Assessment: - The heart rate, respiratory rate, oxygen saturations, blood pressure, adequacy of pulmonary ventilation, and response to care were monitored throughout the procedure. The Colonoscope was introduced through the anus and advanced to the cecum, identified by appendiceal orifice and ileocecal valve. The colonoscopy was performed without difficulty. The patient tolerated the procedure well. The quality of the bowel preparation was excellent. Findings: The perianal and digital rectal examinations were normal. No other significant abnormalities were identified in a careful examination of the remainder of the colon. The exam was otherwise without abnormality on direct and retroflexion views. Impression: - The examination was otherwise normal on direct and retroflexion views. - No specimens collected. - The exam was otherwise normal to the cecum. Recommendation: - Patient has a contact number available for emergencies. The signs and symptoms of potential delayed complications were discussed with the patient. Return to normal activities tomorrow. Written discharge instructions were provided to the patient. - High fiber diet. - Discharge patient to home. - Continue present medications. - Repeat colonoscopy in 5 years for screening purposes. - Return to referring physician. - The findings and recommendations were discussed with the patient. Procedure Code(s): --- Professional --- 91540, Colonoscopy, flexible; diagnostic, including collection of specimen(s) by brushing or washing, when performed (separate procedure) Diagnosis Code(s): --- Professional --- Z80.0, Family history of malignant neoplasm of digestive organs CPT copyright 2019 [employer]. All rights reserved. The codes documented in this report are preliminary and upon child care centre manager review may be revised to meet current compliance requirements. Pedro Sewell MD Pedro Sewell MD 04/08/2020 10:52:45 AM Electronically signed by Pedro Sewell MD Number of Addenda: 0 Note Initiated On: 04/08/2020 10:16 AM Estimated Blood Loss: Estimated blood loss: none.
[2020-04-08 11:25] VITALS: BP 138/71
== END 2020-04-08 11:50 | disposition home or self-care (01) ==
LOC: M OPP 09:02
PROVIDERS: ATTEND Internal Medicine Gastroenterology
DX: Z12.11 Encounter for screening for malignant neoplasm of colon (principal); Z80.0 Family history of malignant neoplasm of digestive organs; D50.9 Iron deficiency anemia, unspecified; K29.70 Gastritis, unspecified, without bleeding; D13.39 Benign neoplasm of other parts of small intestine; K44.9 Diaphragmatic hernia without obstruction or gangrene; K22.8 Other specified diseases of esophagus; I10 Essential (primary) hypertension; E78.5 Hyperlipidemia, unspecified; R12 Heartburn; M19.90 Unspecified osteoarthritis, unspecified site; G43.909 Migraine, unspecified, not intractable, without status migrainosus; J45.909 Unspecified asthma, uncomplicated; Z87.891 Personal history of nicotine dependence; Z79.899 Other long term (current) drug therapy
CPT/HCPCS: 43239; 45378; 88305; J3010

== ENCOUNTER → 2020-04-11 | Outpatient (CLI) | payer OTHER ==
[~2020-04-11] MED LIST changes: +GASTROGRAFIN SOLUTION 30ML (Q9963) As Ordered ONE; +ISOVUE-370 76% 100ML VIAL As Ordered ONE; -NS 1,000 ML IV ONE
--- NOTE | 2020-04-12 04:19 | REP ---
INDICATION: UPPER ABD PAIN. COMPARISON: None TECHNIQUE: Axial contrast-enhanced images from the lung bases to the pubic symphysis using oral and 100 cc Isovue 370 intravenous contrast material. . This CT examination was performed using the following dose reduction techniques: Automated exposure control, adjustment of mA and/or kv according to the patient's size, and the use of iterative reconstruction technique. FINDINGS: Liver, spleen, pancreas, gallbladder, bilateral adrenal glands and kidneys are normal. The enteric system including stomach, small, and large bowel appears normal. No evidence for obstruction or acute inflammatory process. Normal terminal ileum and cecum are identified in the right lower quadrant. Pelvis demonstrates normal bladder and prior hysterectomy with normal adnexa. No ascites. No free air. No intraperitoneal or retroperitoneal adenopathy. Abdominal aorta and vasculature appear normal. Musculoskeletal structures are intact and without acute osseous abnormality. IMPRESSION: No acute abdominopelvic pathology appreciated. <Electronically signed by Santy Mays > 04/12/20 [id number]
== END ==
LOC: M RAD 16:05
PROVIDERS: ATTEND Internal Medicine Gastroenterology
DX: R10.10 Upper abdominal pain, unspecified (principal)
CPT/HCPCS: 74177; Q9963; Q9967

== ENCOUNTER 2020-07-02 11:19 | Emergency (ER) | payer OTHER ==
[~2020-07-02] VITALS: Ht 139.7 cm; Wt 56.4 kg
[~2020-07-02 11:19] MED LIST changes: -GASTROGRAFIN SOLUTION 30ML (Q9963) As Ordered ONE; -ISOVUE-370 76% 100ML VIAL As Ordered ONE
[2020-07-02] MEDS ORDERED: METOPROLOL 5 MG/5 ML VIAL IV SCH (12:45)
[2020-07-02 13:08] LABS: BASO # 0.1 10^3/uL (0.0-0.2); BASO % 1.3 % (0.0-1.0); EOS # 0.1 10^3/uL (0.0-0.5); HEMATOCRIT 30.9 % (36.0-47.0); LYMPH # 1.2 10^3/uL (1.5-5.0); LYMPH % 17.9 % (24.0-44.0); MEAN CORPUSCULAR HEMOGLOBIN 22.1 pg (27.0-33.0); MEAN CORPUSCULAR HGB CONC 29.1 g/dl (32.0-36.5); MEAN CORPUSCULAR VOLUME 75.7 fl (80.0-96.0); MONO # 0.5 10^3/uL (0.0-0.8); MONO % 6.8 % (2.0-8.0); NEUTROPHILS % 71.7 % (36.0-66.0); PLATELET COUNT, AUTOMATED 478 10^3/uL (150-450); RED BLOOD COUNT 4.08 10^6/uL (4.00-5.40); WHITE BLOOD COUNT 6.9 10^3/uL (4.0-10.0)
[2020-07-02] MEDS ORDERED: amLODIPine 5 MG TAB PO ONE (13:10)
[2020-07-02 13:14] VITALS: BP 152/90
--- NOTE | 2020-07-02 13:29 | REP ---
INDICATION: CHEST PAIN. COMPARISON: 09/28/2019. TECHNIQUE: Single portable AP view of the chest was performed. FINDINGS: There is no acute infiltrate or pulmonary edema. Lungs are clear. The heart is not significantly enlarged. The mediastinal silhouette is unremarkable. The visualized osseous structures are intact. IMPRESSION: No acute pulmonary disease. <Electronically signed by Grayson Harris > 07/02/20 [id number]
[2020-07-02 13:45] LABS: BLOOD UREA NITROGEN 7 MG/DL (7-18); CALCIUM LEVEL 9.4 MG/DL (8.5-10.1); CARBON DIOXIDE LEVEL 25 MEQ/L (21-32); CHLORIDE LEVEL 108 MEQ/L (98-107); CREATININE FOR GFR 0.57 MG/DL (0.55-1.30); GLOMERULAR FILTRATION RATE > 60.0 (>58); GLUCOSE, FASTING 86 MG/DL (70-100); NT-PRO BNP 88 PG/ML (<125); POTASSIUM SERUM 4.2 MEQ/L (3.5-5.1); SODIUM LEVEL 140 MEQ/L (136-145); THYROID STIMULATING HORMONE 0.657 uIU/ML (0.358-3.740)
[2020-07-02] MEDS ORDERED: ISOVUE-370 76% 100ML VIAL As Ordered ONE (13:55)
--- NOTE | 2020-07-02 14:41 | REP ---
INDICATION: vertigo, HTN urgency. COMPARISON: Comparison CT study August 01, 2018.. TECHNIQUE: Helical scanning is acquired. 5 mm axial images were reformatted. Coronal MPR images were generated. FINDINGS: Bone window settings demonstrate an intact bony calvarium. There is no evidence of skull fracture or incidental bony calvarial lesion. The visualized paranasal sinuses appear clear. No intraorbital abnormality is seen. On soft tissue window setting images; the lateral, third, and fourth ventricles are normal in size and position. Harris-white differentiation pattern is normal above and below the tentorium. There are is no evidence of intracranial hemorrhage. No mass, edema, infarction, or midline shift is seen. No extra-axial fluid collection is appreciated. Digital talent rep radiograph demonstrates that the maxilla is edentulous. IMPRESSION: Negative noncontrast head CT. <Electronically signed by Ar Stallworth > 07/02/20 [id number]
--- NOTE | 2020-07-02 14:44 | REP ---
INDICATION: vertigo, hypertensive crisis,. COMPARISON: None. TECHNIQUE: CT contrast dose: 100 ml of intravenous Isovue 370. CT technique: Helical scanning is acquired. 2 mm axial images are reformatted. Maximal intensity projection and multiplanar re-formation images are generated along with 3-D surface rendered color imaging which is viewed rotational. FINDINGS: The distal internal carotid arteries are normal and symmetric. The anterior and middle cerebral arteries are intact. There is no evidence of rosenbaum aneurysm or arteriovenous malformation. The distal vertebral arteries are patent, right smaller than left. Basilar artery is widely patent. Posterior cerebral and superior cerebellar vessels are unremarkable. The dural sinuses appear normal and homogeneously enhanced. IMPRESSION: Unremarkable CT angiography of the brain with IV contrast. <Electronically signed by Ar Stallworth > 07/02/20 [id number]
--- NOTE | 2020-07-02 14:46 | REP ---
INDICATION: vertigo, hypertensive crisis, COMPARISON: None. TECHNIQUE: Contrast enhancement dose is 100 mL of intravenous Isovue 370. Helical scanning is acquired. 2 mm axial images are re-formatted. Coronal and sagittal MPR images are generated. Coronal and sagittal MIP and oblique MPR images are generated. 3D surface rendered images are generated and viewed rotationally. FINDINGS: Or aortic arch is unremarkable. Great vessel origins are intact. The common carotid arteries are normal bilaterally. Carotid bifurcations are bilaterally clear without evidence of stenosis or observable plaquing. The cervical segments of the internal carotid arteries are unremarkable bilaterally. There is no evidence to suggest dissection, occlusion, or other abnormality. The vertebral arteries are patent bilaterally, right smaller than left. The lung apices are clear. No significant soft tissue abnormality is seen. IMPRESSION: Normal CT angiography of the carotids and neck. <Electronically signed by Ar Stallworth > 07/02/20 [id number]
[2020-07-02] MEDS ORDERED: AMLO1TAB24 PO (15:22)
[2020-07-02 15:32] VITALS: BP 145/92
--- NOTE | 2020-07-02 17:53 | ECGEPIP ---
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
== END 2020-07-02 15:42 | disposition home or self-care (01) ==
LOC: M ED 11:19
DX: I16.0 Hypertensive urgency (principal); I10 Essential (primary) hypertension; G43.909 Migraine, unspecified, not intractable, without status migrainosus; Z79.899 Other long term (current) drug therapy; Z87.891 Personal history of nicotine dependence
CPT/HCPCS: 36415; 70450; 70496; 70498; 71045; 80048; 83880; 84443; 84484; 85025; 85379; 93005; 93041; 94760; 96374; 99285; Q9967

== ENCOUNTER → 2021-08-14 | Outpatient (REF) | payer OTHER ==
[~2021-08-14] MED LIST changes: +ASPI-596 PO; -EXCEDTAB PO; +GABA-283 PO; -GABA-845 PO; +OMEP40CA4 PO; -OMEP40CA97 PO; +TIZA10TA PO; -TIZA4TAB4 PO
[2021-08-14 16:34] LABS: BASO # 0.2 10^3/uL (0.0-0.2); BASO % 1.9 % (0.0-1.0); EOS # 0.4 10^3/uL (0.0-0.5); EOS % 5.1 % (0.0-3.0); HEMATOCRIT 31.2 % (36.0-47.0); HEMOGLOBIN 8.9 g/dl (12.0-15.5); LYMPH # 2.8 10^3/uL (1.5-5.0); LYMPH % 35.7 % (24.0-44.0); MEAN CORPUSCULAR HEMOGLOBIN 20.3 pg (27.0-33.0); MEAN CORPUSCULAR HGB CONC 28.5 g/dl (32.0-36.5); MEAN CORPUSCULAR VOLUME 71.2 fl (80.0-96.0); MONO # 0.5 10^3/uL (0.0-0.8); MONO % 6.5 % (2.0-8.0); NEUTROPHILS # 3.9 10^3/uL (1.5-8.5); NEUTROPHILS % 50.5 % (36.0-66.0); PLATELET COUNT, AUTOMATED 447 10^3/uL (150-450); RED BLOOD COUNT 4.38 10^6/uL (4.00-5.40); WHITE BLOOD COUNT 7.8 10^3/uL (4.0-10.0)
[2021-08-14 16:53] LABS: ALBUMIN 4.1 GM/DL (3.2-5.2); ALT/SGPT 23 U/L (12-78); BILIRUBIN,TOTAL 0.5 MG/DL (0.2-1.0); BLOOD UREA NITROGEN 11 MG/DL (7-18); CALCIUM LEVEL 9.4 MG/DL (8.5-10.1); CARBON DIOXIDE LEVEL 25 MEQ/L (21-32); CHLORIDE LEVEL 107 MEQ/L (98-107); CREATININE FOR GFR 0.74 MG/DL (0.55-1.30); GLOMERULAR FILTRATION RATE > 60.0 (>58); GLUCOSE, FASTING 82 MG/DL (70-100); IRON (FE) 27 UG/DL (50-170); PERCENT SATURATION 5.9 % (13.2-45.0); POTASSIUM SERUM 3.7 MEQ/L (3.5-5.1); SODIUM LEVEL 139 MEQ/L (136-145); TOTAL IRON BINDING CAPACITY 459 UG/DL (250-450); TOTAL PROTEIN 7.4 GM/DL (6.4-8.2)
== END ==
LOC: M SFHCADAM 14:09
PROVIDERS: ATTEND Family Medicine
DX: Z01.818 Encounter for other preprocedural examination (principal); Z86.2 Personal history of diseases of the blood and blood-forming organs and certain disorders involving the immune mechanism

== ENCOUNTER → 2021-08-14 | Outpatient (CLI) | payer OTHER | LOC: M ADAMS 14:14 | PROVIDERS: ATTEND Family Medicine | DX: Z01.818 Encounter for other preprocedural examination (principal) ==

== ENCOUNTER 2021-12-19 23:54 | Emergency (ER) | payer OTHER ==
[~2021-12-19] VITALS: Ht 139.7 cm; Wt 54.5 kg
[2021-12-20 03:57] VITALS: BP 156/77
== END 2021-12-20 04:49 | disposition left against medical advice (07) ==
LOC: M ED 23:54
DX: Z53.21 Procedure and treatment not carried out due to patient leaving prior to being seen by health care provider (principal)

== ENCOUNTER → 2022-05-04 | Outpatient (REF) | payer OTHER ==
[2022-05-05 13:56] LABS: IRON (FE) 10 UG/DL (50-170); PERCENT SATURATION 2.3 % (13.2-45.0); TOTAL IRON BINDING CAPACITY 440 UG/DL (250-425)
[2022-05-05 13:58] LABS: BASO # 0.2 10^3/uL (0.0-0.2); BASO % 1.8 % (0.0-1.0); EOS # 0.4 10^3/uL (0.0-0.5); EOS % 4.6 % (0.0-3.0); HEMATOCRIT 30.4 % (36.0-47.0); HEMOGLOBIN 8.6 g/dl (12.0-15.5); LYMPH # 3.3 10^3/uL (1.5-5.0); LYMPH % 36.9 % (24.0-44.0); MEAN CORPUSCULAR HEMOGLOBIN 20.9 pg (27.0-33.0); MEAN CORPUSCULAR HGB CONC 28.3 g/dl (32.0-36.5); MONO # 0.6 10^3/uL (0.0-0.8); MONO % 6.6 % (2.0-8.0); NEUTROPHILS # 4.5 10^3/uL (1.5-8.5); NEUTROPHILS % 49.9 % (36.0-66.0); PLATELET COUNT, AUTOMATED 487 10^3/uL (150-450); RED BLOOD COUNT 4.11 10^6/uL (4.00-5.40)
[2022-05-05 15:01] LABS: ALBUMIN 4.1 G/DL (3.2-5.2); ALKALINE PHOSPHATASE 91 U/L (46-116); ALT/SGPT 21 U/L (7.0-40); AST/SGOT 31 U/L (<34); BILIRUBIN,TOTAL 0.4 MG/DL (0.3-1.2); BLOOD UREA NITROGEN 14 MG/DL (9-23); CARBON DIOXIDE LEVEL 27 MMOL/L (20-31); CHLORIDE LEVEL 103 MMOL/L (98-107); CHOLESTEROL LEVEL 230 MG/DL (<200); CHOLESTEROL RISK RATIO 3.41 (<5); CREATININE FOR GFR 0.61 MG/DL (0.55-1.30); FREE T4 1.07 NG/DL (0.89-1.76); GLOMERULAR FILTRATION RATE > 60.0 (>58); GLUCOSE, FASTING 86 MG/DL (60-100); HDL CHOLESTEROL 67.3 MG/DL (>40); NON-HDL-C 163 MG/DL; POTASSIUM SERUM 4.2 MMOL/L (3.5-5.1); SODIUM LEVEL 138 MMOL/L (136-145); THYROID STIMULATING HORMONE 1.244 uIU/ML (0.55-4.78)
[2022-05-05 15:13] LABS: LDL CHOLESTEROL 141.9 MG/DL (<100); TOTAL PROTEIN 7.5 G/DL (5.7-8.2); TRIGLYCERIDES LEVEL 104 MG/DL (<150)
== END ==
LOC: M SFHCADAM 15:29
PROVIDERS: ATTEND Family Medicine
DX: Z00.00 Encounter for general adult medical examination without abnormal findings (principal); Z86.2 Personal history of diseases of the blood and blood-forming organs and certain disorders involving the immune mechanism

== ENCOUNTER 2022-07-15 00:07 | Emergency (ER) | payer OTHER ==
[~2022-07-15] VITALS: Ht 139.7 cm; Wt 56.0 kg
[2022-07-15] MEDS ORDERED: methylPREDNISolone 125MG 2ML VIAL IV ONE (00:20)
[2022-07-15] MEDS ORDERED: IPRATROPIUM 0.5MG/ALBUTEROL 2.5MG INH SOL UD 3ML (DUONEB) NEB PRN (00:25)
[2022-07-15 00:45] LABS: BASO # 0.2 10^3/uL (0.0-0.2); BASO % 1.9 % (0.0-1.0); EOS # 0.3 10^3/uL (0.0-0.5); EOS % 3.7 % (0.0-3.0); HEMATOCRIT 29.1 % (36.0-47.0); HEMOGLOBIN 8.5 g/dl (12.0-15.5); LYMPH # 2.8 10^3/uL (1.5-5.0); LYMPH % 32.9 % (24.0-44.0); MEAN CORPUSCULAR HEMOGLOBIN 20.8 pg (27.0-33.0); MEAN CORPUSCULAR HGB CONC 29.2 g/dl (32.0-36.5); MEAN CORPUSCULAR VOLUME 71.3 fl (80.0-96.0); MONO # 0.4 10^3/uL (0.0-0.8); MONO % 5.2 % (2.0-8.0); NEUTROPHILS # 4.8 10^3/uL (1.5-8.5); NEUTROPHILS % 56.1 % (36.0-66.0); PLATELET COUNT, AUTOMATED 482 10^3/uL (150-450); RED BLOOD COUNT 4.08 10^6/uL (4.00-5.40); WHITE BLOOD COUNT 8.5 10^3/uL (4.0-10.0)
[2022-07-15 00:46] LABS: ABG BASE EXCESS 0.3 (-2.0-2.0); ABG HCO3 23.2 MMOL/L (22.0-26.0); ABG O2 SATURATION 97.8 % (95.0-99.0); ABG PARTIAL PRESSURE CO2 30.9 mmHg (35.0-45.0); ABG PARTIAL PRESSURE O2 101.9 mmHg (75.0-100.0); ABG STANDARD HCO3 24.8 MMOL/L. (22.0-26.0); ABG TOTAL CO2 24.1 MMOL/L (22.0-29.0); ABG pH (ARTERIAL) 7.493 UNITS (7.350-7.450)
[2022-07-15 01:18] LABS: ALBUMIN 4.1 G/DL (3.2-5.2); ALKALINE PHOSPHATASE 79 U/L (46-116); ALT/SGPT 17 U/L (7.0-40); AST/SGOT 30 U/L (<34); BILIRUBIN,TOTAL 0.3 MG/DL (0.3-1.2); BLOOD UREA NITROGEN 10 MG/DL (9-23); CALCIUM LEVEL 8.8 MG/DL (8.5-10.1); CARBON DIOXIDE LEVEL 24 MMOL/L (20-31); CHLORIDE LEVEL 106 MMOL/L (98-107); CK-MB VALUE MASS 1.4 NG/ML (<3.6); CPK CREATINE PHOSPHOKINASE 204 U/L (34-145); GLOMERULAR FILTRATION RATE > 60.0 (>58); GLUCOSE, FASTING 100 MG/DL (60-100); MB/CK RELATIVE INDEX 0.68 (< OR =4); POTASSIUM SERUM 3.5 MMOL/L (3.5-5.1); SODIUM LEVEL 139 MMOL/L (136-145); TOTAL PROTEIN 7.3 G/DL (5.7-8.2)
[2022-07-15] MEDS ORDERED: ISOVUE-370 76% 100ML VIAL As Ordered ONE (01:34)
[2022-07-15 02:20] LABS: CK-MB VALUE MASS 1.2 NG/ML (<3.6)
[2022-07-15 02:23] LABS: MB/CK RELATIVE INDEX 0.61 (< OR =4)
[2022-07-15 02:30] VITALS: BP 135/83
[2022-07-15] MEDS ORDERED: PRED20TA PO (02:50)
== END 2022-07-15 03:03 | disposition home or self-care (01) ==
LOC: M ED 00:07
DX: J45.901 Unspecified asthma with (acute) exacerbation (principal); I10 Essential (primary) hypertension; J45.909 Unspecified asthma, uncomplicated; K25.9 Gastric ulcer, unspecified as acute or chronic, without hemorrhage or perforation; D50.9 Iron deficiency anemia, unspecified; R56.9 Unspecified convulsions; Z87.891 Personal history of nicotine dependence; Z79.51 Long term (current) use of inhaled steroids; Z79.899 Other long term (current) drug therapy
CPT/HCPCS: 36600; 71045; 71275; 80053; 82550; 82553; 82803; 83880; 84484; 85025; 87486; 87581; 87633; 87798; 93005; 93041; 94640; 94760; 96374; 99285; J2930; Q9967

== ENCOUNTER → 2022-09-08 | Outpatient (REF) | payer OTHER ==
[~2022-09-08] MED LIST changes: +PRED20TA PO
[2022-09-08 15:50] LABS: BASO # 0.1 10^3/uL (0.0-0.2); BASO % 1.9 % (0.0-1.0); EOS # 0.3 10^3/uL (0.0-0.5); EOS % 4.1 % (0.0-3.0); HEMATOCRIT 31.9 % (36.0-47.0); HEMOGLOBIN 8.9 g/dl (12.0-15.5); LYMPH # 2.4 10^3/uL (1.5-5.0); LYMPH % 35.3 % (24.0-44.0); MEAN CORPUSCULAR HEMOGLOBIN 20.6 pg (27.0-33.0); MEAN CORPUSCULAR HGB CONC 27.9 g/dl (32.0-36.5); MEAN CORPUSCULAR VOLUME 73.7 fl (80.0-96.0); MONO # 0.4 10^3/uL (0.0-0.8); MONO % 5.5 % (2.0-8.0); NEUTROPHILS # 3.6 10^3/uL (1.5-8.5); NEUTROPHILS % 52.9 % (36.0-66.0); PLATELET COUNT, AUTOMATED 581 10^3/uL (150-450); RED BLOOD COUNT 4.33 10^6/uL (4.00-5.40); WHITE BLOOD COUNT 6.9 10^3/uL (4.0-10.0)
== END ==
LOC: M LAB REF 13:30
PROVIDERS: ATTEND Internal Medicine Pulmonary Disease
DX: J45.50 Severe persistent asthma, uncomplicated (principal)

== ENCOUNTER → 2023-01-13 | Outpatient (CLI) | payer OTHER ==
[~2023-01-13] MED LIST changes: -GABA-283 PO; +GABA-284 PO
[2023-01-13 08:57] LABS: BASO # 0.2 10^3/uL (0.0-0.2); BASO % 2.6 % (0.0-1.0); EOS # 0.4 10^3/uL (0.0-0.5); EOS % 5.8 % (0.0-3.0); HEMATOCRIT 30.2 % (36.0-47.0); HEMOGLOBIN 8.5 g/dl (12.0-15.5); LYMPH % 30.7 % (24.0-44.0); MEAN CORPUSCULAR HEMOGLOBIN 20.6 pg (27.0-33.0); MEAN CORPUSCULAR HGB CONC 28.1 g/dl (32.0-36.5); MEAN CORPUSCULAR VOLUME 73.3 fl (80.0-96.0); MONO # 0.4 10^3/uL (0.0-0.8); MONO % 6.5 % (2.0-8.0); NEUTROPHILS # 3.6 10^3/uL (1.5-8.5); NEUTROPHILS % 54.2 % (36.0-66.0); PLATELET COUNT, AUTOMATED 457 10^3/uL (150-450); RED BLOOD COUNT 4.12 10^6/uL (4.00-5.40); WHITE BLOOD COUNT 6.6 10^3/uL (4.0-10.0)
[2023-01-13 09:15] LABS: IRON (FE) 15 UG/DL (50-170)
[2023-01-13 09:16] LABS: ALBUMIN 3.7 G/DL (3.2-5.2); ALKALINE PHOSPHATASE 78 U/L (46-116); ALT/SGPT 14 U/L (7.0-40); AST/SGOT 21 U/L (<34); BILIRUBIN,TOTAL 0.4 MG/DL (0.3-1.2); BLOOD UREA NITROGEN 11 MG/DL (9-23); CALCIUM LEVEL 8.7 MG/DL (8.5-10.1); CARBON DIOXIDE LEVEL 27 MMOL/L (20-31); CHLORIDE LEVEL 104 MMOL/L (98-107); GLOMERULAR FILTRATION RATE > 60.0 (>58); GLUCOSE, FASTING 87 MG/DL (60-100); PERCENT SATURATION 3.6 % (13.2-45.0); POTASSIUM SERUM 4.1 MMOL/L (3.5-5.1); SODIUM LEVEL 138 MMOL/L (136-145); TOTAL IRON BINDING CAPACITY 414 UG/DL (250-425); TOTAL PROTEIN 7.3 G/DL (5.7-8.2)
== END ==
LOC: M RAD 07:37
PROVIDERS: ATTEND Family Medicine
DX: R10.11 Right upper quadrant pain (principal)

== ENCOUNTER → 2023-07-28 | Outpatient (CLI) | payer OTHER ==
[~2023-07-28] MED LIST changes: +GLUCAGON INJ 1MG VIAL As Ordered ONE; +ISOVUE-370 76% 100ML VIAL As Ordered ONE; +NEULUMEX 0.1% SUSPENSION 450ML BOTTLE (FORMERLY VOLUMEN) As Ordered ONE
== END ==
LOC: M RAD 08:22
PROVIDERS: ATTEND Internal Medicine Gastroenterology
DX: K50.012 Crohn's disease of small intestine with intestinal obstruction (principal); D50.9 Iron deficiency anemia, unspecified

== ENCOUNTER 2023-09-13 11:00 | Day surgery (SDC) | payer OTHER ==
[~2023-09-13] VITALS: Ht 139.7 cm; Wt 54.9 kg
[~2023-09-13 11:00] MED LIST changes: +ALBU8.5H INH; +AMLO10TA PO; +BUDE10.2 INH; +FLUT12AE3 INH; -GLUCAGON INJ 1MG VIAL As Ordered ONE; +IRON65TA2 PO; -ISOVUE-370 76% 100ML VIAL As Ordered ONE; +MONT10TA97 PO; -NEULUMEX 0.1% SUSPENSION 450ML BOTTLE (FORMERLY VOLUMEN) As Ordered ONE; +SENN-186 PO; +SPIR12.9 INH; +TEZE210S SQ
[2023-09-13] MEDS: NS 1,000 ML IV ONE (11:14)
[2023-09-13] MEDS ORDERED: propofoL 200 MG/20 ML VIAL As Ordered ONE (11:44)
[2023-09-13 13:22] VITALS: BP 128/78; O2SAT 98
== END 2023-09-13 13:21 | disposition home or self-care (01) ==
LOC: M OPP 11:00
PROVIDERS: ATTEND Internal Medicine Gastroenterology
DX: K57.30 Diverticulosis of large intestine without perforation or abscess without bleeding (principal); K64.8 Other hemorrhoids; D50.9 Iron deficiency anemia, unspecified; K22.89 Other specified disease of esophagus; K44.9 Diaphragmatic hernia without obstruction or gangrene; J45.909 Unspecified asthma, uncomplicated; Z87.891 Personal history of nicotine dependence; Z79.1 Long term (current) use of non-steroidal anti-inflammatories (NSAID); Z79.51 Long term (current) use of inhaled steroids; Z79.52 Long term (current) use of systemic steroids

== ENCOUNTER 2023-10-01 00:11 | Emergency (ER) | payer OTHER ==
[~2023-10-01] VITALS: Ht 139.7 cm; Wt 55.4 kg
[2023-10-01 02:13] LABS: BASO # 0.1 10^3/uL (0.0-0.2); BASO % 0.8 % (0.0-1.0); EOS # 0.1 10^3/uL (0.0-0.5); EOS % 0.6 % (0.0-3.0); HEMATOCRIT 28.6 % (36.0-47.0); HEMOGLOBIN 8.2 g/dl (12.0-15.5); LYMPH # 1.6 10^3/uL (1.5-5.0); LYMPH % 11.3 % (24.0-44.0); MEAN CORPUSCULAR HEMOGLOBIN 20.7 pg (27.0-33.0); MEAN CORPUSCULAR HGB CONC 28.7 g/dl (32.0-36.5); MONO % 6.9 % (2.0-8.0); NEUTROPHILS # 11.6 10^3/uL (1.5-8.5); NEUTROPHILS % 79.8 % (36.0-66.0); PLATELET COUNT, AUTOMATED 518 10^3/uL (150-450); RED BLOOD COUNT 3.97 10^6/uL (4.00-5.40); WHITE BLOOD COUNT 14.5 10^3/uL (4.0-10.0)
[2023-10-01 02:30] LABS: ALKALINE PHOSPHATASE 93 U/L (46-116); ALT/SGPT 17 U/L (7.0-40); AST/SGOT 19 U/L (<34); BILIRUBIN,DIRECT < 0.1 MG/DL (<0.4); BILIRUBIN,TOTAL 0.4 MG/DL (0.3-1.2); BLOOD UREA NITROGEN 12 MG/DL (9-23); CALCIUM LEVEL 8.6 MG/DL (8.5-10.1); CARBON DIOXIDE LEVEL 25 MMOL/L (20-31); CHLORIDE LEVEL 107 MMOL/L (98-107); CREATININE FOR GFR 0.54 MG/DL (0.55-1.30); GLOMERULAR FILTRATION RATE > 60.0 (>51); GLUCOSE, FASTING 115 MG/DL (60-100); POTASSIUM SERUM 3.9 MMOL/L (3.5-5.1); SODIUM LEVEL 139 MMOL/L (136-145); TOTAL PROTEIN 7.3 G/DL (5.7-8.2)
[2023-10-01 08:30] VITALS: BP 133/81; TEMP 98.4; O2SAT 96
== END 2023-10-01 08:59 | disposition home or self-care (01) ==
LOC: M ED 00:11
DX: R06.02 Shortness of breath (principal); D72.829 Elevated white blood cell count, unspecified; J45.909 Unspecified asthma, uncomplicated; G43.909 Migraine, unspecified, not intractable, without status migrainosus; D50.9 Iron deficiency anemia, unspecified; M54.9 Dorsalgia, unspecified; Z79.51 Long term (current) use of inhaled steroids; Z79.899 Other long term (current) drug therapy

== ENCOUNTER 2023-10-17 14:55 | Emergency (ER) | payer OTHER ==
[~2023-10-17] VITALS: Ht 139.7 cm; Wt 54.3 kg
[2023-10-17] MEDS ORDERED: ISOVUE-370 76% 100ML VIAL As Ordered ONE (15:08)
[2023-10-17] MEDS: MORPHINE 4 MG/ML 1ML VIAL IV PRN (15:20)
[2023-10-17 15:30] LABS: BASO # 0.1 10^3/uL (0.0-0.2); BASO % 1.1 % (0.0-1.0); EOS # 0.2 10^3/uL (0.0-0.5); EOS % 1.6 % (0.0-3.0); HEMATOCRIT 28.8 % (36.0-47.0); HEMOGLOBIN 8.3 g/dl (12.0-15.5); LYMPH # 2.5 10^3/uL (1.5-5.0); LYMPH % 25.2 % (24.0-44.0); MEAN CORPUSCULAR HEMOGLOBIN 20.6 pg (27.0-33.0); MEAN CORPUSCULAR HGB CONC 28.8 g/dl (32.0-36.5); MEAN CORPUSCULAR VOLUME 71.6 fl (80.0-96.0); MONO # 0.6 10^3/uL (0.0-0.8); NEUTROPHILS # 6.4 10^3/uL (1.5-8.5); NEUTROPHILS % 65.8 % (36.0-66.0); PLATELET COUNT, AUTOMATED 520 10^3/uL (150-450); RED BLOOD COUNT 4.02 10^6/uL (4.00-5.40); WHITE BLOOD COUNT 9.8 10^3/uL (4.0-10.0)
[2023-10-17 15:48] LABS: INR 1.01; PARTIAL THROMBOPLASTIN TIME 26.8 SECONDS (24.8-34.2)
[2023-10-17 15:55] LABS: BLOOD UREA NITROGEN 9 MG/DL (9-23); CALCIUM LEVEL 8.8 MG/DL (8.5-10.1); CARBON DIOXIDE LEVEL 26 MMOL/L (20-31); CHLORIDE LEVEL 107 MMOL/L (98-107); CREATININE FOR GFR 0.59 MG/DL (0.55-1.30); GLOMERULAR FILTRATION RATE > 60.0 (>51); GLUCOSE, FASTING 94 MG/DL (60-100); POTASSIUM SERUM 3.6 MMOL/L (3.5-5.1); SODIUM LEVEL 140 MMOL/L (136-145)
[2023-10-17 17:54] VITALS: BP 152/82; TEMP 98.9; O2SAT 99
== END 2023-10-17 18:02 | disposition home or self-care (01) ==
LOC: EDBD 14:55 → M ED 14:55
DX: S06.0X0A Concussion without loss of consciousness, initial encounter (principal); S20.219A Contusion of unspecified front wall of thorax, initial encounter; S80.11XA Contusion of right lower leg, initial encounter; S80.12XA Contusion of left lower leg, initial encounter; Y92.410 Unspecified street and highway as the place of occurrence of the external cause; Y93.9 Activity, unspecified; Y99.9 Unspecified external cause status; V43.52XA Car driver injured in collision with other type car in traffic accident, initial encounter; I10 Essential (primary) hypertension; K21.9 Gastro-esophageal reflux disease without esophagitis; J45.909 Unspecified asthma, uncomplicated; D64.9 Anemia, unspecified; Z79.1 Long term (current) use of non-steroidal anti-inflammatories (NSAID); Z79.51 Long term (current) use of inhaled steroids; Z79.899 Other long term (current) drug therapy
CPT/HCPCS: 70450; 71260; 72125; 73590; 74177; 80047; 80048; 85025; 85610; 85730; 93041; 94760; 96374; 99285; Q9967

== ENCOUNTER 2023-10-19 12:01 | Emergency (ER) | payer OTHER ==
[~2023-10-19] VITALS: Ht 139.7 cm; Wt 53.0 kg
[2023-10-19] MEDS: methocarbamoL 500 MG TAB PO ONE (12:53)
[2023-10-19] MEDS: ACETAMINOPHEN 500 MG TAB PO ONE (12:54)
[2023-10-19 13:08] LABS: BASO # 0.1 10^3/uL (0.0-0.2); BASO % 0.7 % (0.0-1.0); EOS # 0.1 10^3/uL (0.0-0.5); EOS % 1.3 % (0.0-3.0); HEMATOCRIT 27.5 % (36.0-47.0); HEMOGLOBIN 7.9 g/dl (12.0-15.5); LYMPH # 1.8 10^3/uL (1.5-5.0); MEAN CORPUSCULAR HEMOGLOBIN 20.5 pg (27.0-33.0); MEAN CORPUSCULAR HGB CONC 28.7 g/dl (32.0-36.5); MEAN CORPUSCULAR VOLUME 71.2 fl (80.0-96.0); MONO # 0.9 10^3/uL (0.0-0.8); MONO % 9.1 % (2.0-8.0); NEUTROPHILS # 6.7 10^3/uL (1.5-8.5); NEUTROPHILS % 69.6 % (36.0-66.0); PLATELET COUNT, AUTOMATED 459 10^3/uL (150-450); RED BLOOD COUNT 3.86 10^6/uL (4.00-5.40); WHITE BLOOD COUNT 9.6 10^3/uL (4.0-10.0)
[2023-10-19 13:49] LABS: ALKALINE PHOSPHATASE 79 U/L (46-116); ALT/SGPT 16 U/L (7.0-40); AST/SGOT 18 U/L (<34); BILIRUBIN,DIRECT 0.1 MG/DL (<0.4); BILIRUBIN,TOTAL 0.5 MG/DL (0.3-1.2); BLOOD UREA NITROGEN 9 MG/DL (9-23); CARBON DIOXIDE LEVEL 26 MMOL/L (20-31); CHLORIDE LEVEL 106 MMOL/L (98-107); CREATININE FOR GFR 0.52 MG/DL (0.55-1.30); GLOMERULAR FILTRATION RATE > 60.0 (>51); GLUCOSE, FASTING 93 MG/DL (60-100); POTASSIUM SERUM 3.6 MMOL/L (3.5-5.1); SODIUM LEVEL 138 MMOL/L (136-145); TOTAL PROTEIN 7.6 G/DL (5.7-8.2)
[2023-10-19] MEDS: KETOROLAC 30 MG/ML 1ML VIAL IV ONE (14:24)
[2023-10-19] MEDS ORDERED: ISOVUE-370 76% 100ML VIAL As Ordered ONE (14:28)
[2023-10-19] MEDS ORDERED: METH-1164 PO (15:45)
[2023-10-19 15:52] VITALS: BP 142/75; TEMP 97.8; O2SAT 96
== END 2023-10-19 15:58 | disposition home or self-care (01) ==
LOC: M ED 12:01
DX: D64.9 Anemia, unspecified (principal); V49.40XA Driver injured in collision with unspecified motor vehicles in traffic accident, initial encounter; J45.909 Unspecified asthma, uncomplicated; I10 Essential (primary) hypertension; Z79.1 Long term (current) use of non-steroidal anti-inflammatories (NSAID); Z79.51 Long term (current) use of inhaled steroids; Z79.899 Other long term (current) drug therapy
CPT/HCPCS: 74177; 80048; 80076; 85025; 96374; 99284; J1885; Q9967

== ENCOUNTER → 2023-10-22 | Outpatient (CLI) | payer OTHER ==
[~2023-10-22] MED LIST changes: +METH-1164 PO
== END ==
LOC: M ADAMS 14:34
PROVIDERS: ATTEND Physician Assistant
DX: S20.211A Contusion of right front wall of thorax, initial encounter (principal); W18.30XA Fall on same level, unspecified, initial encounter; Y92.009 Unspecified place in unspecified non-institutional (private) residence as the place of occurrence of the external cause

== ENCOUNTER 2023-11-05 20:02 | Emergency (ER) | payer OTHER ==
[~2023-11-05] VITALS: Ht 139.7 cm; Wt 55.7 kg
[2023-11-06 03:59] VITALS: BP 143/86; TEMP 98; O2SAT 98
== END 2023-11-06 04:00 | disposition home or self-care (01) ==
LOC: M ED 20:02
DX: S80.12XA Contusion of left lower leg, initial encounter (principal); Y92.9 Unspecified place or not applicable; Y93.9 Activity, unspecified; Y99.9 Unspecified external cause status; I10 Essential (primary) hypertension; K21.9 Gastro-esophageal reflux disease without esophagitis; J45.909 Unspecified asthma, uncomplicated; F10.10 Alcohol abuse, uncomplicated; Z79.1 Long term (current) use of non-steroidal anti-inflammatories (NSAID); Z79.51 Long term (current) use of inhaled steroids; Z79.899 Other long term (current) drug therapy

== ENCOUNTER → 2023-11-16 | Outpatient (CLI) | payer OTHER | LOC: M ADAMS 15:15 | PROVIDERS: ATTEND Family Medicine | DX: M25.521 Pain in right elbow (principal) ==

== ENCOUNTER → 2024-01-03 | Outpatient (CLI) | payer OTHER ==
[2024-01-03 14:51] LABS: BASO # 0.1 10^3/uL (0.0-0.2); BASO % 1.7 % (0.0-1.0); EOS # 0.2 10^3/uL (0.0-0.5); EOS % 2.1 % (0.0-3.0); HEMATOCRIT 30.8 % (36.0-47.0); HEMOGLOBIN 8.9 g/dl (12.0-15.5); LYMPH # 2.9 10^3/uL (1.5-5.0); LYMPH % 34.6 % (24.0-44.0); MEAN CORPUSCULAR HEMOGLOBIN 20.9 pg (27.0-33.0); MEAN CORPUSCULAR HGB CONC 28.9 g/dl (32.0-36.5); MEAN CORPUSCULAR VOLUME 72.5 fl (80.0-96.0); MONO # 0.6 10^3/uL (0.0-0.8); MONO % 7.1 % (2.0-8.0); NEUTROPHILS # 4.6 10^3/uL (1.5-8.5); NEUTROPHILS % 54.1 % (36.0-66.0); PLATELET COUNT, AUTOMATED 474 10^3/uL (150-450); RED BLOOD COUNT 4.25 10^6/uL (4.00-5.40); WHITE BLOOD COUNT 8.5 10^3/uL (4.0-10.0)
[2024-01-03 15:00] LABS: FERRITIN 3.6 NG/ML (7.3-270.7)
[2024-01-03 15:10] LABS: PARTIAL THROMBOPLASTIN TIME 28.3 SECONDS (24.8-34.2); PROTHROMBIN TIME 13.4 SECONDS (12.5-14.5)
== END ==
LOC: M PLALAB 11:49
PROVIDERS: ATTEND Internal Medicine Hematology
DX: D50.9 Iron deficiency anemia, unspecified (principal)

== ENCOUNTER → 2024-01-13 | Outpatient (CLI) | payer OTHER | LOC: M PLARAD 11:03 | PROVIDERS: ATTEND Physician Assistant | DX: M25.521 Pain in right elbow (principal) ==

== ENCOUNTER 2024-01-25 08:41 | Outpatient (CLI) | payer OTHER ==
[~2024-01-25] VITALS: Ht 139.7 cm; Wt 55.9 kg
[~2024-01-25 08:41] MED LIST changes: +ALBUTEROL SULFATE 2.5MG/0.5ML INH NEB SOLN INH PRN; +EPINEPHrine INJ 1 MG/ML 1ML AMP IM PRN; +diphenhydrAMINE 50MG/ML VIAL IV PRN; +methylPREDNISolone 125MG 2ML VIAL IV PRN
[2024-01-25 08:45] VITALS: BP 171/88; O2SAT 98
[2024-01-25] MEDS ORDERED: NS 1,000 ML IV SCH (09:00)
[2024-01-25] MEDS: IRON SUCROSE 300 MG in NS 250 ML OVER 90 MIN. IV ONE (09:08)
[2024-01-25 10:50] VITALS: BP 168/90; O2SAT 98
== END 2024-01-25 10:50 ==
LOC: M INFU 08:41
PROVIDERS: ATTEND Internal Medicine Hematology
DX: D50.9 Iron deficiency anemia, unspecified (principal)
CPT/HCPCS: 96365; 96366; J1756

== ENCOUNTER 2024-02-08 12:10 | Outpatient (CLI) | payer OTHER ==
[2024-02-08 12:10] VITALS: BP 134/71; O2SAT 98
[~2024-02-08 12:10] MED LIST changes: -ADV100INH INH; +ADVA1AER8 INH; +NS 1,000 ML IV SCH
[2024-02-08] MEDS: IRON SUCROSE 300 MG in NS 250 ML IV ONE (12:15)
[2024-02-08 14:10] VITALS: BP 121/70; O2SAT 97
== END 2024-02-08 14:10 | disposition home or self-care (01) ==
LOC: M INFU 12:10
PROVIDERS: ATTEND Internal Medicine Hematology
DX: D50.9 Iron deficiency anemia, unspecified (principal)
CPT/HCPCS: 96365; 96366; J1756

== ENCOUNTER → 2024-06-07 | Outpatient (CLI) | payer OTHER ==
[~2024-06-07] MED LIST changes: -ALBUTEROL SULFATE 2.5MG/0.5ML INH NEB SOLN INH PRN; -EPINEPHrine INJ 1 MG/ML 1ML AMP IM PRN; -NS 1,000 ML IV SCH; -diphenhydrAMINE 50MG/ML VIAL IV PRN; -methylPREDNISolone 125MG 2ML VIAL IV PRN
== END ==
LOC: M RAD 14:58
PROVIDERS: ATTEND Internal Medicine Gastroenterology
DX: T18.3XXA Foreign body in small intestine, initial encounter (principal); T18.4XXA Foreign body in colon, initial encounter; Y93.9 Activity, unspecified; Y92.9 Unspecified place or not applicable

== ENCOUNTER → 2024-10-11 | Outpatient (CLI) | payer OTHER ==
[~2024-10-11] MED LIST changes: +AMLO-751 PO; -AMLO10TA PO
== END ==
LOC: M WUC 15:43
PROVIDERS: ATTEND Student in an Organized Health Care Education/Training Program
DX: M79.671 Pain in right foot (principal)

== ENCOUNTER 2024-12-06 21:46 | Emergency (ER) | payer OTHER ==
[~2024-12-06] VITALS: Ht 139.7 cm; Wt 56.8 kg
[2024-12-06 23:21] VITALS: BP 142/90; TEMP 98.4; O2SAT 97
[2024-12-06] MEDS: RABIES IMMUNE GLOBULIN 1500 INTERNATIONAL UNIT/5 ML VIAL IM.IMMUN ONE (23:25)
[2024-12-06] MEDS: RABIES VACCINE HUMAN 2.5 INTERNATIONAL UNITS/ML VIAL (IMOVAX) IM ONE (23:26)
== END 2024-12-06 23:51 | disposition home or self-care (01) ==
LOC: M ED 21:46
DX: Z20.3 Contact with and (suspected) exposure to rabies (principal); Z29.14 Encounter for prophylactic rabies immune globulin; Z23 Encounter for immunization; S00.81XA Abrasion of other part of head, initial encounter; Y92.9 Unspecified place or not applicable; Y93.9 Activity, unspecified; Y99.9 Unspecified external cause status; W55.81XA Bitten by other mammals, initial encounter; I10 Essential (primary) hypertension; F10.10 Alcohol abuse, uncomplicated; Z79.1 Long term (current) use of non-steroidal anti-inflammatories (NSAID); Z79.51 Long term (current) use of inhaled steroids; Z79.899 Other long term (current) drug therapy

== ENCOUNTER 2024-12-09 10:32 | Emergency (ER) | payer OTHER ==
[~2024-12-09] VITALS: Ht 139.7 cm; Wt 57.9 kg
[2024-12-09 10:34] VITALS: BP 141/87; TEMP 97.8; O2SAT 97
[2024-12-09] MEDS: RABIES VACCINE HUMAN 2.5 INTERNATIONAL UNITS/ML VIAL (IMOVAX) IM ONE (11:04)
== END 2024-12-09 11:35 | disposition home or self-care (01) ==
LOC: M ED 10:32
DX: Z20.3 Contact with and (suspected) exposure to rabies (principal); Z29.14 Encounter for prophylactic rabies immune globulin; Z23 Encounter for immunization; I10 Essential (primary) hypertension; K21.9 Gastro-esophageal reflux disease without esophagitis; J45.909 Unspecified asthma, uncomplicated; Z87.891 Personal history of nicotine dependence; Z79.1 Long term (current) use of non-steroidal anti-inflammatories (NSAID); Z79.51 Long term (current) use of inhaled steroids; Z79.899 Other long term (current) drug therapy

== ENCOUNTER 2024-12-13 16:44 | Emergency (ER) | payer OTHER ==
[~2024-12-13] VITALS: Ht 139.7 cm; Wt 58.7 kg
[2024-12-13 19:00] VITALS: BP 138/91; TEMP 98.2; O2SAT 96
[2024-12-13] MEDS: RABIES VACCINE HUMAN 2.5 INTERNATIONAL UNITS/ML VIAL (IMOVAX) IM ONE (20:28)
== END 2024-12-13 20:38 | disposition home or self-care (01) ==
LOC: M ED 16:44
DX: Z20.3 Contact with and (suspected) exposure to rabies (principal); Z29.14 Encounter for prophylactic rabies immune globulin; Z23 Encounter for immunization; Z79.1 Long term (current) use of non-steroidal anti-inflammatories (NSAID); Z79.51 Long term (current) use of inhaled steroids; Z79.899 Other long term (current) drug therapy